=== PATIENT | female | born 1965 | race Caucasian/White ===

== ENCOUNTER 2020-05-01 15:29 | Outpatient (CLI) | payer BC, SELFPAY | END 2020-05-01 15:30 | disposition home or self-care (01) | LOC: ANHSURGERY 15:32 | PROVIDERS: PCP Internal Medicine; Visit Provider Obstetrics & Gynecology | DX: N83.8 Other noninflammatory disorders of ovary, fallopian tube and broad ligament (principal); Z01.818 Encounter for other preprocedural examination | CPT/HCPCS: 36415; 86850; 86900; 86901 ==

== ENCOUNTER → 2020-05-02 00:36 | Outpatient (CLI) | payer BC, SELFPAY ==
[2020-05-02 20:38] LABS: SARS-CoV-2 RNA PCR Negative
== END ==
PROVIDERS: PCP Internal Medicine; Visit Provider Obstetrics & Gynecology
DX: Z01.812 Encounter for preprocedural laboratory examination (principal); Z20.822 Contact with and (suspected) exposure to COVID-19
CPT/HCPCS: C9803; U0003; U0005

== ENCOUNTER 2020-05-06 00:46 | Day surgery (SDC) | payer BC, SELFPAY ==
[2020-04-30 17:46] VITALS: BMI 23.5
--- NOTE | 2020-05-05 17:20 | PM.IMHP ---
H&P: HPI History of Present Illness Date/Time: 05/05/20 17:20 Chief Complaint: Pelvic mass Narrative: 54 y/o with a pelvic mass. On ultrasound it appears to be a 10 cm, simple-appearing cystic mass. She has no pain. Review of Systems Review of Systems: All systems reviewed & are unremarkable except as noted in HPI and below PMFSH Surgical History Surgical History History of sinus surgery Social History Social History Smoking status: Never smoker Second hand tobacco smoke exposure: No Alcohol intake: current Drinks per week: 1 Substance use: never Spiritual care concerns: No Meds Home Medications and Allergies Home Medications Medication Instructions Recorded Confirmed Type acetaminophen [Tylenol] 325 mg PO DAILY PRN 04/30/20 04/30/20 History aspirin 81 mg PO DAILY 04/30/20 04/30/20 History diphenhydramine HCl [Child's 12.5 mg PO Q6H PRN 04/30/20 04/30/20 History Benadryl Allergy] fluticasone propionate [Flonase] 2 spray INTRANASAL DAILY PRN 04/30/20 04/30/20 History wronfpdglrev-ftp-ayas-FA-vit K 1 tablet PO DAILY 04/30/20 04/30/20 History [Adults Multivitamin] naproxen 250 mg PO BID PRN 04/30/20 04/30/20 History pseudoephedrine-acetaminophen 1 tablet PO DAILY PRN 04/30/20 04/30/20 History [Tylenol Sinus] Allergies Allergy/AdvReac Type Severity Reaction Status Date / Time No Known Allergies Allergy Verified 04/30/20 17:26 Exam Const: Orientation/consciousness: patient oriented x3 Other: Well-developed, well-nourished female in no acute distress. Neck: Thyroid: thyroid normal Lymphatic: no lymphadenopathy noted (in neck, axilla or inguinal nodes) Resp: Effort & Inspection: normal respiratory effort Auscultation: clear to auscultation bilaterally Cardio: Rate: regular rate Rhythm: regular rhythm Heart sounds: S1 normal heart sound present and S2 normal heart sound present GI: Other: ABD: Soft, nontender, nondistended. No guarding or rebound tenderness. No hepatosplenomegaly. : General: Yes no CVA tenderness Other: External genitalia: normal female hair distribution, without lesion. Urethral meatus: no lesion, non prolapsed. Bladder: no mass, nontender Vagina: well-estrogenized, without lesion or discharge. No cystocele or rectocele. Cervix: no lesion or discharge. Uterus: small, anteverted, freely mobile, nontender Adnexa: A nontender pelvic mass is appreciated, seems to be left of midline. Anus/perineum: no lesions, nontender Back/Spine/Pelvis: Back: no CVA tenderness Skin: General skin exam: normal color and no rashes or lesions noted Neuro: General: patient oriented x3 Extrem: Other: Extremities: nontender with no edema Psych: Mental Status: mental status grossly normal Affect: normal affect Assessment and Plan Assessment and plan (1) Adnexal mass: Code(s): N94.89 - Other specified conditions associated with female genital organs and menstrual cycle Status: Acute Assessment and Plan: A: 10 cm simple adnexal cystic mass. P: I offered expectant management vs. surgical evaluation and treatment. She prefers the latter. She understands risks of surgery to include risks of anesthesia, risks of pain, infection, bleeding, blood products, thromboembolic phenomena and damage to adjacent structures such as bowel, bladder, ureters, blood vessels and nerves. She understands all these risks and elects to proceed with diagnostic laparoscopy with possible ovarian cystectomy and possible unilateral salpingo-oophorectomy.
[2020-05-06] VITALS (9 sets, daily range): BP systolic 114–148; BP diastolic 73–93; PULSE 70–128; RESP 10–20; TEMP 36.6–36.8; O2SAT 100
[2020-05-06] MEDS: LACTATED RINGERS 1,000 ML 30 ML IV CONT ×2 (10:45→13:34)
[2020-05-06] MEDS: ACETAMINOPHEN 500 MG TABLET 1000 MG PO (11:09)
[2020-05-06] MEDS: KETOROLAC 15 MG/ML VIAL (*BKC) IV PUSH (11:10)
--- NOTE | 2020-05-06 11:10 | WPDANESEPPF ---
Anes - Initial Pre Proc Eval Procedure: Operation Date: 05/06/20 12:00 Proposed Procedures p Diagnostic Laparoscopy, Possible Unilateral Salpingo Oophorectomy - Rupert Whitten MD Date/Time: 05/06/20 11:10 Surgeon: Rupert Whitten MD Pre Op Diagnosis: Adnexal Ovarian Mass Patient Data Age: 54 Gender: F Height: 5 ft 7 in Weight: 68 kg Last Vital Signs Temp 36.8 C 05/06/20 10:27 Pulse 128 H 05/06/20 10:27 Resp 20 05/06/20 10:27 BP 148/85 H 05/06/20 10:27 Pulse Ox 100 05/06/20 10:27 Allergies Allergy/AdvReac Type Severity Reaction Status Date / Time No Known Allergies Allergy Verified 05/06/20 10:30 Home Medications Medication Instructions Recorded Confirmed Type acetaminophen [Tylenol] 325 mg PO DAILY PRN 04/30/20 05/06/20 History aspirin 81 mg PO DAILY 04/30/20 05/06/20 History diphenhydramine HCl [Child's 12.5 mg PO Q6H PRN 04/30/20 05/06/20 History Benadryl Allergy] fluticasone propionate [Flonase] 2 spray INTRANASAL DAILY PRN 04/30/20 05/06/20 History [id number]-tho-fhyq-FA-vit K 1 tablet PO DAILY 04/30/20 05/06/20 History [Adults Multivitamin] naproxen 250 mg PO BID PRN 04/30/20 05/06/20 History pseudoephedrine-acetaminophen 1 tablet PO DAILY PRN 04/30/20 05/06/20 History [Tylenol Sinus] Patient hx anesthesia problems: none Family hx anesthesia problems: none PMFSH Surgical History Surgical History History of sinus surgery Social History Social History Smoking status: Never smoker Second hand tobacco smoke exposure: No Alcohol intake: current Drinks per week: 1 Alcohol use details: rarely drink Substance use: never Living arrangements: with family Spiritual care concerns: No Anes - Eval Final PreProcedure Day of Procedure 05/06/20 11:10 Patient weight: normal Heart: regular rate and rhythm Lungs: clear to auscultation Airway: Mallampati scale class II Neurological: alert and oriented Last oral intake: >/= 8 hours ASA classification: I Emergent: no Anesthetic plan: proceed Anesthesia type and monitoring: general ETT and standard monitoring Informed Consent: The patient's anesthetic plan and its attendant risks and benefits were discussed with the patient/family/POA. Questions were solicited and answers provided to the satisfaction of the patient/family/POA.
--- NOTE | 2020-05-06 12:03 | WPDHPUPDATE1 ---
History and Physical Update Update Date/Time: 05/06/20 12:03 History and Physical has been reviewed, including an updated exam of the patient. There are NO changes in the patient's condition. Risks, benefits, and alternatives have been discussed and questions answered. Patient agrees to proceed with procedure.
--- NOTE | 2020-05-06 13:31 | PM.PROC ---
Procedure Note - Detailed Date of procedure: 05/06/20 Pre-op diagnosis: Adnexal Ovarian Mass Adnexal mass Post-op diagnosis: same (Left paratubal cyst) Procedure performed: Diagnostic laparoscopy Left adnexal cystotomy Left salpingooophorectomy Description of procedure: The patient was taken to the operating room where general endotracheal anesthesia was administered. She was prepared and draped in the usual sterile fashion in the dorsal lithotomy position. The bladder was drained with a red rubber catheter. A sterile speculum was inserted into the vagina and the anterior lip of the cervix was grasped with a single-toothed tenaculum. The acorn uterine manipulator was placed. The speculum was withdrawn. Gloves were changed and attention was turned to the abdomen. An infraumbilical skin incision was made with a scalpel. The abdomen was tented and a 5 millimeter bladeless trocar trocar was advanced under direct laparoscopic visualization. Pneumoperitoneum was administered using carbon dioxide gas. A survey of the pelvis and abdomen yielded the findings noted above. A 5 mm port was placed in the right lower quadrant and a 12 mm port in the left, both using bladeless trocars under direct laparoscopic visualization. Using electrocautery, the cyst was incised and drained of approximately 400mL of serous fluid. The left ureter was identified. The left infundibulopelvic ligament and uteroovarian ligament were ligated and transected using Ligasure. Hemostasis was excellent. The left adnexa was placed in an endobag and brought to the surface, was passed off to be sent to pathology. The pelvis was irrigated using warmed normal saline. Hemostasis was confirmed. The trocars were withdrawn and the gas was allowed to escape. The fascial incision in the left lower quadrant was reapproximated using 0 Vicryl in two interrupted, figure of eight sutures. The skin incisions were reapproximated using 4-0 Vicryl in interrupted subcuticular fashion. Dermaflex was applied externally. The vaginal instrumentation was withdrawn and hemostasis was excellent here as well. Sponge, lap, needle and instrument counts were correct. The patient was awakened and taken to recovery in stable condition. I was present and scrubbed through the entire procedure. Implants: None Anesthesia: GETA Surgeon: Rupert Whitten MD Estimated blood loss (mL): 10 Drains: No Packing: No Pathology: yes (Left adnexa) Complications: None Condition: stable Disposition: PACU Findings: Large, 10cm simple-appearing cyst of the left adnexa, apparently a paratubal cyst, filled with serous fluid. Both ovaries unremarkable, right tube unremarkable. The uterus, bilateral round and uterosacral ligaments, anterior and posterior cul-de-sac all unremarkable.
[2020-05-06] MEDS: ONDANSETRON INJ 4 MG/2 ML VIAL IV PUSH (14:44)
[2020-05-06] MEDS: oxyCODONE HCL (*CRX) 5 MG TAB IR PO (15:41)
== END 2020-05-06 16:23 | disposition home or self-care (01) ==
PROVIDERS: PCP Internal Medicine; Visit Provider Obstetrics & Gynecology
PROC: (CPT 49320; principal; 2020-05-06 12:00)
DX: D27.1 Benign neoplasm of left ovary (principal); N83.8 Other noninflammatory disorders of ovary, fallopian tube and broad ligament
CPT/HCPCS: 58661; 58662; 88305; A9270; J0330; J1885; J2250; J2405; J2704; J3010; J7030; J7120; Q9968

== ENCOUNTER 2021-12-13 13:10 | Outpatient (CLI) | payer BC, SELFPAY ==
--- NOTE | ~2021-12-13 | XR_ITS ---
XR abdomen/kub 1V 12/13/2021 13:36 Indication: Microscopic hematuria Procedure: KUB Comparison: No prior studies Findings: Nonobstructive bowel gas pattern. No evidence for renal/ureteral stone. There is mild lumba r spondylosis with levoscoliosis. No acute osseous abnormality. Lung bases unremarkable. Impression: 1: No acute abdominal abnormality. Reviewed, dictated and finalized at location A. Impression: 1: No acute abdominal abnormality.
--- NOTE | ~2021-12-13 | CT_ITS ---
EXAMINATION: CT abdomen pelvis wo/w con DATE: 12/13/2021 14:07 INDICATION: Microscopic hematuria TECHNIQUE: Computed tomography (CT) of the abdomen and pelvis was performed without and with 130 cc O mnipaque 350 intravenous contrast. The dose-length product was 809.72 mGy-cm. Automated exposure cont rol and iterative reconstruction technique were employed. COMPARISON: None. FINDINGS: Lung bases are unremarkable. No significant pleural or pericardial effusion. Heart size nor mal. No significant vascular abnormality. No lymphadenopathy. Small fat-containing umbilical hernia. The liver, spleen, pancreas, adrenal glands and kidneys are unremarkable. Nonobstructive bowel gas pa ttern. No lymphadenopathy. Gallbladder is present. Mild lumbar spondylosis. No free air or free fluid . IMPRESSION: 1. No acute abdominal abnormality. No findings to account for hematuria. Reviewed, dictated and finalized at location A.
== END 2021-12-13 13:11 | disposition home or self-care (01) ==
PROVIDERS: PCP Internal Medicine; Visit Provider Nurse Practitioner Family
DX: R31.29 Other microscopic hematuria (principal)
CPT/HCPCS: 74018; 74178; Q9967

== ENCOUNTER 2024-02-06 03:01 | Day surgery (SDC) | payer BC, SELFPAY ==
[2024-01-25 13:31] VITALS: BMI 23.4
[2024-02-06 09:37] VITALS: BP 130/96; PULSE 113; RESP 20; TEMP 36.1; O2SAT 100
[2024-02-06] MEDS: LACTATED RINGERS 1,000 ML 150 ML IV CONT (09:45)
--- NOTE | 2024-02-06 10:12 | WPDANESEPPF ---
Anes - Initial Pre Proc Eval Procedure: Operation Date: 02/06/24 11:00 Proposed Procedures p Colonoscopy - Ronny Ohara MD Date/Time: 02/06/24 10:12 Surgeon: Ronny Ohara MD Pre Op Diagnosis: Fam. Hx. colon CA Patient Data Age: 58 Gender: F Height: 1.7 m Weight: 69.2 kg Last Vital Signs Temp 96.9 F L 02/06/24 09:37 Pulse 113 H 02/06/24 09:37 Resp 20 02/06/24 09:37 BP 130/96 H 02/06/24 09:37 Pulse Ox 100 02/06/24 09:37 O2 Del Method Room Air 02/06/24 09:37 Allergies Allergy/AdvReac Type Severity Reaction Status Date / Time No Known Allergies Allergy Verified 02/06/24 09:34 Home Medications Medication Instructions Recorded Confirmed Type acetaminophen 325 mg tablet 325 mg PO DAILY PRN Pain 04/30/20 02/06/24 History (Tylenol) diphenhydramine HCl 25 mg tablet 25 mg PO QHS PRN seasonal allergies 10/18/22 02/06/24 History (Benadryl Allergy) losartan 25 mg tablet 25 mg PO DAILY 01/25/24 02/06/24 History triamcinolone acetonide 55 mcg 1 spray intranasal PRN PRN 01/25/24 02/06/24 History nasal spray aerosol (Nasacort) seasonal allergies Patient hx anesthesia problems: other (reports history of recall during last colonoscopy. no difficulties with GETA.) Family hx anesthesia problems: none Prior surgeries: sinus surgery for polyps X 3, scoliosis correction as child Results Review: All pre-operative results and documents have been reviewed as part of the pre-operative evaluation. [facility] Past Medical History Medical History (Updated 02/06/24 @ 10:16 by Cyndee Garcia CRNA) Anxiety Depression Migraine Scoliosis Seasonal allergies Surgical History Surgical History History of sinus surgery Social History Social History Smoking status: Never smoker Second hand tobacco smoke exposure: No Alcohol intake: current Drinks per week: 1 Alcohol use details: 2 per month Substance use: never Do You Feel Safe in your Home?: Yes Lack of Transportation: No Lack of Food: Never True Current Housing: I Have Housing Concerned About Future Housing: No Difficulty Paying Gas/Electric Bills: No Difficulty Paying for Meds: No Currently Unemployed: No Education: Bachelor's Degree Difficulty w/ Childcare or Family Care: No Living arrangements: with family Gender identity (if verbalized by the patient): Female Sexual Orientation (if Verbalized by the Patient): Straight or Heterosexual Spiritual care concerns: No Anes - Eval Final PreProcedure Day of Procedure 02/06/24 10:12 Patient weight: normal Heart: regular rate and rhythm Lungs: clear to auscultation Airway: Mallampati scale class II Neurological: alert and oriented Last oral intake: >/= 8 hours ASA classification: II Emergent: no Anesthetic plan: proceed Anesthesia type and monitoring: general GIVS Results Review: All pre-operative results and documents have been reviewed as part of the pre-operative evaluation. Informed Consent: The patient's anesthetic plan and its attendant risks and benefits were discussed with the patient/family/POA. Questions were solicited and answers provided to the satisfaction of the patient/family/POA.
--- NOTE | 2024-02-06 10:28 | PM.HPGS ---
History of Present Illness History of Present Illness Consent: Risks, benefits, and alternatives have been discussed and questions answered. Patient agrees to proceed with procedure. Chief complaint: Fam. Hx. colon CA Narrative: Gretta Burleson is a 58 year old female here for screening colonoscopy, last one 8 years ago Review of Systems Review of Systems: All systems reviewed & are unremarkable except as noted in HPI and below PMFSH Past Medical History Medical History (Updated 02/06/24 @ 10:30 by Ronny Ohara MD) Anxiety Colon cancer screening Depression Migraine Scoliosis Seasonal allergies Surgical History Surgical History History of sinus surgery Social History Social History Smoking status: Never smoker Second hand tobacco smoke exposure: No Alcohol intake: current Drinks per week: 1 Alcohol use details: 2 per month Substance use: never Do You Feel Safe in your Home?: Yes Lack of Transportation: No Lack of Food: Never True Current Housing: I Have Housing Concerned About Future Housing: No Difficulty Paying Gas/Electric Bills: No Difficulty Paying for Meds: No Currently Unemployed: No Education: Bachelor's Degree Difficulty w/ Childcare or Family Care: No Living arrangements: with family Gender identity (if verbalized by the patient): Female Sexual Orientation (if Verbalized by the Patient): Straight or Heterosexual Spiritual care concerns: No Meds Home Medications and Allergies Home Medications Medication Instructions Recorded Confirmed Type acetaminophen 325 mg tablet 325 mg PO DAILY PRN Pain 04/30/20 02/06/24 History (Tylenol) diphenhydramine HCl 25 mg tablet 25 mg PO QHS PRN seasonal allergies 10/18/22 02/06/24 History (Benadryl Allergy) losartan 25 mg tablet 25 mg PO DAILY 01/25/24 02/06/24 History triamcinolone acetonide 55 mcg 1 spray intranasal PRN PRN 01/25/24 02/06/24 History nasal spray aerosol (Nasacort) seasonal allergies Allergies Allergy/AdvReac Type Severity Reaction Status Date / Time No Known Allergies Allergy Verified 02/06/24 09:34 Vital Signs Vital Signs - 24 hr 02/06/24 09:37 Temperature 96.9 F L Pulse Rate 113 H Respiratory Rate 20 Blood Pressure 130/96 H Pulse Oximetry 100 Oxygen Delivery Room Air Exam Const: General: comfortable and no acute distress HENMT: Face/Nose/Sinus: Normal nares present Eyes: General: appearance normal, both eyes and all related structures Neck: Neck: no JVD Resp: Auscultation: clear to auscultation bilaterally Cardio: Rate: regular rate Rhythm: regular rhythm GI: Inspection: non-distended GI Palp: Yes Soft to palpation Skin: General skin exam: normal color Neuro: General: gait normal Speech: normal speech Extrem: General: normal to inspection Psych: Mental Status: mental status grossly normal Assessment and Plan Assessment and plan (1) Colon cancer screening: Code(s): Z12.11 - Encounter for screening for malignant neoplasm of colon Status: Acute Assessment and Plan: colonoscopy
[2024-02-06 10:55] VITALS: BP 92/63; PULSE 81; RESP 14; O2SAT 96
[2024-02-06 10:59] VITALS: BP 94/64; PULSE 80; RESP 16; O2SAT 97
[2024-02-06 11:05] VITALS: BP 105/71; PULSE 77; RESP 16; O2SAT 97
[2024-02-06 11:15] VITALS: BP 111/71; PULSE 75; RESP 16; O2SAT 100
== END 2024-02-06 11:35 | disposition home or self-care (01) ==
PROVIDERS: PCP Internal Medicine; Referring Provider Internal Medicine; Visit Provider Internal Medicine Gastroenterology
PROC: 0DJD8ZZ Inspection of Lower Intestinal Tract, Via Natural or Artificial Opening Endoscopic (ICD-10-PCS; CPT 45378; principal; 2024-02-06 11:00)
DX: Z12.11 Encounter for screening for malignant neoplasm of colon (principal); K64.8 Other hemorrhoids; Z80.0 Family history of malignant neoplasm of digestive organs
CPT/HCPCS: 45378; J2003; J2704; J7120

== ENCOUNTER 2024-12-27 10:15 | Outpatient (CLI) | payer BC, SELFPAY ==
--- NOTE | ~2024-12-27 | DEXA_ITS ---
Bone Density Report Name: SOFYA HERNANDEZ Age: 59 Sex: Female Ethnicity: White Date of : 1965 Indication: postmenopausal; screening for osteoporosis; Referring Provider: DIOMEDES, DAVION Arellano Study: Bone densitometry was performed. Exam Date: December 27, 2024 Accession number: [id number] Bone Density: Region BMD T-score Z-score Classification AP Spine(L1-L4) 1.142 0.9 2.4 Normal Femoral Neck (Left) 0.770 -0.7 0.6 Normal Total Hip (Left) 0.875 -0.5 0.5 Normal Femoral Neck (Right) 0.730 -1.1 0.3 Osteopenia Total Hip (Right) 0.869 -0.6 0.4 Normal Total Hip Mean 0.872 -0.6 0.5 Normal World Health Organization criteria for BMD impression classify patients as: Normal (T-score at or above -1.0), Osteopenia (T-score between -1.0 and -2.5), or Osteoporosis (T-score at or below -2.5). 10-year Fracture Risk(1): Major Osteoporotic Fracture 7.5% Hip Fracture 0.5% Reported Risk Factors: [place] (), Neck BMD=0.730, BMI=25.2 (1) FRAX(R) Version 3.08. Fracture probability calculated for an untreated patient. Fracture probability may be lower if the patient has received treatment. Clinical Information Provided by Patient: Patient maximum height was 67 Menopause Age: 51 Drinks caffeinated beverages Onset of menses at age 13 Number of children 2 Impression: The patient has low bone mass, based on the Right Femoral Neck T-score. The patient has an estimated ten-year risk of hip fracture of 0.5% and an estimated ten-year risk of major fracture of 7.5%, based on the WHO FRAX algorithm. Discussion: BONE DENSITY IS LOW AT ONE OR MORE SKELETAL SITES. This patient's lowest T-score is low at one or more skeletal sites. It meets the World Health Organization's (WHO) criteria for ?low bone mass? (T-score between -1.0 and -2.5). The patient's 10-year risk of fracture as calculated by FRAX is less than the threshold where pharmacological therapy is recommended by the National Osteoporosis Foundation (NOF). However, all treatment decisions require clinical judgment and consideration of individual patient factors, including patient preferences, comorbidities, previous drug use, risk factors not captured in the FRAX model (e.g., frailty, falls, vitamin D deficiency, increased bone turnover, interval significant decline in bone density) and possible under or overestimation of fracture risk by FRAX. The patient should follow a healthful lifestyle (good nutrition with adequate calcium and vitamin D, and appropriate weight-bearing exercise). Follow-Up: Consider repeating this study in 2 to 3 years to reassess this patient's status, or sooner if there is some new clinical indication. Reported by: MARBIN on 12/27/2024 10:45:00 AM. Reviewed, dictated and finalized at location A.
== END 2024-12-27 10:16 | disposition home or self-care (01) ==
LOC: MICIMG 10:16
PROVIDERS: PCP Internal Medicine; Visit Provider Internal Medicine
DX: M81.0 Age-related osteoporosis without current pathological fracture (principal); M85.851 Other specified disorders of bone density and structure, right thigh
CPT/HCPCS: 77080

== ENCOUNTER 2025-03-07 10:04 | Emergency (ER) | payer BC, SELFPAY ==
--- NOTE | 2025-03-07 10:05 | ED.FEMALEGU ---
HPI - Female Genitourinary General Chief complaint: Urogenital-Female Stated complaint: Uti Symptoms Time Seen by Provider: 03/07/25 10:05 Source: patient Mode of arrival: ambulatory Limitations: no limitations History of Present Illness HPI Narrative: patient is a 59-year-old female presents with urinary urgency and burning that started yesterday. Patient reports she had blood in her urine this morning. Denies any fever, chills, nausea, vomiting, diarrhea. Denies any vaginal itching or discharge. MD elicited complaint: dysuria Related Data Home Medications ?Medication ?Instructions ?Recorded ?Confirmed ?Last Taken ?Type acetaminophen 325 mg tablet 325 mg PO DAILY PRN Pain 04/30/20 02/06/24 01/28/24 History (Tylenol) diphenhydramine HCl 25 mg tablet 25 mg PO QHS PRN seasonal allergies 10/18/22 02/06/24 01/28/24 History (Benadryl Allergy) losartan 25 mg tablet 25 mg PO DAILY 01/25/24 02/06/24 01/28/24 History triamcinolone acetonide 55 mcg 1 spray intranasal PRN PRN 01/25/24 02/06/24 01/28/24 History nasal spray aerosol (Nasacort) seasonal allergies Allergies Allergy/AdvReac Type Severity Reaction Status Date / Time No Known Allergies Allergy Verified 03/07/25 10:07 Review of Systems Review of Systems: All systems reviewed & are unremarkable except as noted in HPI and below Constitutional: Constitutional: Denies chills, Denies fever(s), Denies headache(s), Denies malaise and Denies weakness Eyes: Eyes: Denies change in vision, Denies eye discharge and Denies irritation ENT: Denies otalgia, Denies headache(s), Denies nasal congestion, Denies nasal discharge, Denies sinus pain and Denies sore throat Cardiovascular: Cardiovascular: Denies chest pain, Denies edema, Denies palpitations and Denies dyspnea Respiratory: Respiratory: Denies cough and Denies dyspnea Gastrointestinal: Gastrointestinal: Denies abdominal pain, Denies diarrhea, Denies nausea and Denies vomiting Genitourinary: Genitourinary: Reports hematuria, Reports nocturia, Reports dysuria, Denies flank pain and Reports urinary urgency Musculoskeletal: Musculoskeletal: Denies back pain and Denies numbness Integumentary/Breasts: Skin/Breast: Denies pruritus and Denies rash Neurologic: Denies headache(s), Denies numbness and Denies weakness Psychiatric: Psychiatric: Reports no additional psychiatric complaints Endocrine: Endocrine: Denies palpitations PMFSH Past Medical History Medical History Colon cancer screening Seasonal allergies Migraine Scoliosis Depression Anxiety Surgical History Surgical History History of sinus surgery Social History Social History Smoking status: Never smoker Second hand tobacco smoke exposure: No Alcohol intake: current Drinks per week: 1 Alcohol use details: 2 per month Substance use: never Lack of Transportation: No Lack of Food: Never True Current Housing: I Have Housing Concerned About Future Housing: No Difficulty Paying Gas/Electric Bills: No Difficulty Paying for Meds: No Currently Unemployed: No Education: Bachelor's Degree Difficulty w/ Childcare or Family Care: No Living arrangements: with family Gender identity (if verbalized by the patient): Female Sexual Orientation (if Verbalized by the Patient): Straight or Heterosexual Spiritual care concerns: No Comments At time of signature, agree with nursing past medical, surgical, social and family history. There is no relevant family history pertinent to the presenting complaint. Exam Const: General: cooperative, healthy appearing, comfortable, no acute distress and well nourished Nutritional Appearance: well nourished Orientation/consciousness: patient oriented x3 HENMT: Head: normocephalic and atraumatic Ears: external ears normal Face/Nose/Sinus: Normal external nose present, Normal nares present and normal facial exam Face and sinus: normal facial exam Eyes: General: appearance normal, both eyes and all related structures Pupils: Equal, round and reactive pupils present EOM: EOMs intact bilaterally Neck: Neck: normal visual inspection, full ROM and supple Chest: Chest palpation & inspection: normal inspection of the chest Resp: Effort & Inspection: normal respiratory effort and able to speak in complete sentences Cardio: Rate: tachycardic Rhythm: regular rhythm GI: Inspection: normal to inspection GI Palp: No abdominal tenderness and Yes Soft to palpation : General: Yes no CVA tenderness Back/Spine/Pelvis: Back: no CVA tenderness Skin: General skin exam: normal color and no rashes or lesions noted Neuro: General: patient oriented x3 and moves all extremities Cranial nerves: Yes Equal, round and reactive pupils present Extrem: General: normal to inspection and full ROM Psych: Appearance: grossly normal and well kempt Course Course Emergency Course: Patient is aware of diagnosis, understands and agrees to treatment plan. Anticipatory guidance given. Patient agrees to follow-up as directed and is aware of reasons to seek care at the emergency department. Portions of this record may have been created with voice recognition software Level of Care: Express Care Visit Vital Signs Vital signs: Vital Signs Temperature 36.4 C L 03/07/25 10:08 Pulse Rate 118 H 03/07/25 10:08 Respiratory Rate 18 03/07/25 10:08 Blood Pressure 149/98 H 03/07/25 10:08 Pulse Oximetry 100 03/07/25 10:08 Oxygen Delivery Room Air 03/07/25 10:08 Temperature 36.4 C L 03/07/25 10:08 Pulse Rate 118 H 03/07/25 10:08 Respiratory Rate 18 03/07/25 10:08 Blood Pressure 149/98 H 03/07/25 10:08 Pulse Oximetry 100 03/07/25 10:08 Oxygen Delivery Room Air 03/07/25 10:08 [facility] MDM Narrative Medical decision making narrative: Based on symptoms and positive point of care UA, patient will be treated with antibiotics. Pt well hydrated appearing, in no respiratory distress, hemodynamically stable. Recommend supportive care. The patient is stable at time of discharge the clinical impression was discussed and the patient was given the opportunity to ask questions, which were addressed as completely as possible given the information available at present. Anticipatory guidance and return to care precautions were discussed and the importance of primary care follow-up was stressed and encouraged. The patient voiced understanding of the plan, indications to return, and the need for follow-up. Exam findings show no acute concerns or changes Patient is appropriate for outpatient treatment and follow-up. Differential Diagnosis Differential Diagnosis: Differential diagnostic considerations for female urogenital? issues include urinary tract infection, bacterial vaginosis, cervicitis, ovarian cyst, vaginitis, STI exposure, ovarian torsion, ectopic , cyst of Bartholin?s gland, cystitis, dysmenorrhea.?? Medical Records I have reviewed the following patient records and this information was taken into consideration when formulating the assessment and plan.: previous clinic visits Lab Data MDM Lab Attestation statement: I personally reviewed the patient's lab results. Labs: Lab Results 03/07/25 Range/Units 10:20 POC Urine Color [place] POC Urine Clarity Clear POC Urine pH 6.0 POC Ur Specif [place] 1.020 POC Urine Protein 3+ (Negative) POC Ur Glucose (UA) Negative (Negative) POC Urine Ketones Trace (Negative) POC Urine Blood 3+ (Negative) POC Urine Nitrite Negative (Negative) POC Urine Bilirubin 1+ (Negative) POC Urine Urobilinogen 1.0 POC U Leukocyte Esteras 3+ (Negative) Discharge Plan Discharge Clinical Impression: Urinary tract infection Patient Disposition: Home Condition: Stable Instructions: Urinary Tract Infection in Women (ED) Additional Instructions: We will send a urine culture to the lab, based on your symptoms and urine dip we will start treatment today. If culture comes back and bacteria is not susceptible to antibiotic, your prescription may change. Your symptoms should improve within a day of starting antibiotics, but you should finish all the antibiotic pills you get. Otherwise your infection might come back Continue with increased water intake. Take Tylenol or ibuprofen as needed for pain or fever. Follow-up with primary care provider for urine recheck or see ER visit if condition worsens with high fever, nausea, vomiting, severe back pain Patient Language: Lithuanian Prescriptions: New cephalexin 500 mg capsule 500 mg PO Q12H 5 Days Qty: 10 0RF No Action diphenhydramine HCl [Benadryl Allergy] 25 mg tablet 25 mg PO QHS PRN (Reason: seasonal allergies) acetaminophen [Tylenol] 325 mg Tablet 325 mg PO DAILY PRN (Reason: Pain) triamcinolone acetonide [Nasacort] 55 mcg Aerosol,[place] 1 spray INTRANASAL PRN PRN (Reason: seasonal allergies) Rx Instructions: administer into each nostril losartan 25 mg Tablet 25 mg PO DAILY Follow-up/Referrals: Tez,Lamont Arellano MD [Primary Care Provider] Time of Disposition: 10:42
[2025-03-07 10:08] VITALS: BP 149/98; PULSE 118; RESP 18; TEMP 36.4; O2SAT 100
[2025-03-07 10:29] LABS: EDUAAPPEAR Clear; EDUABILI 1+ (Negative); EDUABLOOD 3+ (Negative); EDUACOLOR1 Amber; EDUAGLUCOSE Negative (Negative); EDUAKETONE Trace (Negative); EDUALEUKO 3+ (Negative); EDUANITRATE Negative (Negative); EDUAPH 6.0; EDUAPROTEIN 3+ (Negative); EDUASPGRAVITY 1.020; EDUAUROBILI 1.0
== END 2025-03-07 10:50 | disposition home or self-care (01) ==
PROVIDERS: Emergency Provider Nurse Practitioner Family; PCP Internal Medicine
DX: N39.0 Urinary tract infection, site not specified (principal); M41.9 Scoliosis, unspecified
CPT/HCPCS: 81003; 87086; 99213; G0463